=== PATIENT | female | born 1960 | race Caucasian/White ===

== ENCOUNTER 2016-12-26 08:48 | Outpatient (CLI) | payer OTHER ==
[~2016-12-26 08:48] MED LIST: AMBIEN10 MG PO; FLUOXETINE HCL20 MG PO; OMEPRAZOLE20 M1 PO; VALACYCLOVIR H500 MG PO; VITAMIN D-31000 UNIT PO
--- NOTE | 2016-12-26 10:32 | DIAGNOSTIC IMAGING REPORT ---
PROCEDURE: US ABDOMEN ULTRASOUND-COMPLETE INDICATION: EPIGASTRIC PAIN,VOMITTIG TECHNIQUE: Camacho scale and color Doppler sonographic images of the abdomen were obtained. COMPARISON: None. FINDINGS: Multiple mobile gallstones, largest approximately 1 cm. Normal CBD, 2.5 mm. There is no wall thickening or pericholecystic fluid. Liver, spleen and pancreas are normal. Aorta and IVC are patent. Normal hepatopetal flow. Normal kidneys. Right kidney measures 9.6 cm and left kidney 10.4 cm. IMPRESSION: 1. Cholelithiasis.
== END 2016-12-27 15:43 | disposition home or self-care (01) ==
LOC: US SRH 08:48
DX: K80.20 Calculus of gallbladder without cholecystitis without obstruction (principal)